=== PATIENT | female | born 1930 | race Two or more races ===

== ENCOUNTER → 2018-06-11 | Outpatient (CLI) | payer MEDICARE, MEDICAID ==
[~2018-06-11] MED LIST: ASPI81 PO; ATOR40TA28 PO; CARV3 PO; DIGO-44 PO; FURO-152 PO; LEVO25TA9 PO; LISI2.5T2 PO; RANI300C PO
[2018-06-11 15:36] VITALS: BP 118/62
== END | disposition home or self-care (01) ==
LOC: SRCNTR 10:41
PROVIDERS: ATTEND Internal Medicine Clinical Cardiac Electrophysiology
DX: Z45.02 Encounter for adjustment and management of automatic implantable cardiac defibrillator (principal)
CPT/HCPCS: G0463

== ENCOUNTER → 2018-06-22 | Outpatient (CLI) | payer MEDICARE, MEDICAID ==
[~2018-06-22] VITALS: Ht 147.3 cm; Wt 32.0 kg
[2018-06-22 10:41] VITALS: BP 105/50
== END | disposition home or self-care (01) ==
LOC: SRCNTR 10:02
PROVIDERS: ATTEND Internal Medicine Clinical Cardiac Electrophysiology
DX: Z09 Encounter for follow-up examination after completed treatment for conditions other than malignant neoplasm (principal); I11.0 Hypertensive heart disease with heart failure; I50.9 Heart failure, unspecified; J84.10 Pulmonary fibrosis, unspecified
CPT/HCPCS: G0463

== ENCOUNTER → 2018-08-17 | Outpatient (CLI) | payer MEDICARE, MEDICAID ==
[2018-08-17 10:52] VITALS: BP 113/54
[2018-08-17 10:57] VITALS: BP 123/54
== END | disposition home or self-care (01) ==
LOC: SRCNTR 10:25
PROVIDERS: ATTEND Internal Medicine Clinical Cardiac Electrophysiology
DX: Z45.018 Encounter for adjustment and management of other part of cardiac pacemaker (principal)
CPT/HCPCS: G0463